=== PATIENT | female | born 1960 | race African-American/Black ===

== ENCOUNTER 2019-03-18 09:46 | Day surgery (SDC) | payer MEDICARE, MEDICAID ==
[2019-03-17 10:18] VITALS: BMI 44.2
[2019-03-18] MEDS ORDERED: CEFAZOLIN 1 GM VIAL ONE (10:09)
[2019-03-18] MEDS ORDERED: Sodium Chloride 0.9% 100 ML ONE (10:10)
[2019-03-18] MEDS ORDERED: PROPOFOL 200 MG/20 ML VIAL ONE (10:39)
[2019-03-18] MEDS ORDERED: PHENYLEPHRINE-NS 100 MCG/ML 10 ML SYRINGE ONE (10:39)
[2019-03-18] MEDS ORDERED: Bupivacaine PF 0.5% 30 ML VIAL ONE (11:58)
[2019-03-18] MEDS ORDERED: Fentanyl 100 MCG/2 ML VIAL ONE (12:01)
[2019-03-18] MEDS ORDERED: Midazolam HCl 2 mg/2 ml Vial ONE (12:01)
[2019-03-18] MEDS ORDERED: Propofol 1,000 MG/100 ML VIAL IV ONE ×2 (12:01→12:02)
[2019-03-18] MEDS ORDERED: levETIRAcetam 500 MG/100 ML PREMIX BAG ONE (12:01)
[2019-03-18] MEDS ORDERED: Ketamine 50 MG/ML (10ML VIAL) ONE (12:02)
[2019-03-18] MEDS ORDERED: EPINEPHrine 1 MG/ML AMP ONE (12:32)
[2019-03-18] MEDS ORDERED: PROPOFOL 20 ML ONE (13:41)
[2019-03-18] MEDS ORDERED: HYDROcodone/Acetaminophen 5/325 mg Tablet ONE (15:16)
--- NOTE | 2019-03-18 19:07 | RAD ---
LUMBAR SPINE: Two fluoroscopic views. 03/18/19 INDICATIONS: Fluoroscopic imaging during insertion of dorsal column stimulator. FINDINGS/IMPRESSION: An AP and lateral view of lumbar spine obtained. Leads overlie what appear to represent L3, L4 and L5 vertebrae. POS: OFF
--- NOTE | 2019-03-18 20:37 | OP ---
DATE OF PROCEDURE: 03/18/2019 PREOPERATIVE DIAGNOSES: 1. Chronic pain syndrome. 2. Causalgia of the left lower extremity, G57.72. POSTOPERATIVE DIAGNOSES: 1. Chronic pain syndrome. 2. Causalgia of the left lower extremity, G57.72. PROCEDURES PERFORMED: 1. Spinal column stimulator battery implant. 2. Spinal column stimulator lead implant x2. ESTIMATED BLOOD LOSS: 5 mL. DESCRIPTION OF PROCEDURE: The patient was taken to the procedure room, placed prone on the procedure room table. A time-out was performed. The back was prepped with DuraPrep. Sterile drapes were applied. Using fluoroscopy, we located the L3 and L4 foramen on the left side. We anesthetized the skin in order to insert a 14-gauge supplied Touhy needle in a paramedian technique to access the epidural space midline. This was done with mild resistance to air. The lead and sheath were then placed through the needle and advanced in the epidural space out of the foramen indicated above. The sheath was removed taking care to leave the lead in place. The double loop was performed for an anchor. The needle and sheath were removed once AP and lateral images showed satisfactory placement. This same technique was applied for the 2 levels. The simulation was performed and the patient felt paresthesia in all areas of pain. A pocket was formed by anesthetizing the skin in the right buttock. Scalpel was used to make an incision and this was blunt dissected down the Catracho's fascia. We created a pocket approximately 2 inches deep from the skin. The tunneling device was used to make a tunnel between the lead sites and the battery site. These were connected to the battery and torque wrench was used to fixate them to the battery. These were all tested for impedance and these showed good impedances. Battery was inserted through the pocket. The fascial layers were closed using simple interrupted suture of 2-0 Vicryl, 3-0 Monocryl. Repeat was used for subcuticular stitch to the battery site and Dermabond was placed over all incisions on the left completely dry. Sterile 4x4s were placed over the incisions with Medipore tape. The patient was then taken to the postop unit under stable condition. Job ID: [id number]
== END 2019-03-18 16:07 | disposition home or self-care (01) ==
LOC: SDC 09:46
PROVIDERS: ATTEND Specialist
PROC: 0JH70DZ Insertion of Multiple Array Stimulator Generator into Back Subcutaneous Tissue and Fascia, Open Approach (ICD-10-PCS; principal; 2019-03-18)
PROC: 00HU3MZ Insertion of Neurostimulator Lead into Spinal Canal, Percutaneous Approach (ICD-10-PCS; 2019-03-18)
DX: G89.4 Chronic pain syndrome (principal); G57.72 Causalgia of left lower limb
CPT/HCPCS: 72100; 76000; J0171; J0690; J1953; J2250; J2704; J3010; J3490; S0020

== ENCOUNTER 2020-01-12 08:21 | Outpatient (CLI) | payer MEDICARE, MEDICAID, OTHER ==
[2020-01-13 12:03] LABS: SARS-CoV-2 MS2 Positive; SARS-CoV-2 N Gene Negative; SARS-CoV-2 S Gene Negative; SARS-CoV-2 by NAA Not Detected (NotDetected); SARS-CoV-2 orf1ab Negative
== END 2020-01-12 08:22 | disposition home or self-care (01) ==
LOC: LABBT 08:21
PROVIDERS: ATTEND Specialist
DX: Z20.828 Contact with and (suspected) exposure to other viral communicable diseases (principal)
CPT/HCPCS: 87635; U0003

== ENCOUNTER 2020-01-15 10:36 | Day surgery (SDC) | payer MEDICARE, MEDICAID ==
[2020-01-14 12:52] VITALS: BMI 44.6
[2020-01-15] MEDS ORDERED: CEFAZOLIN 1 GM VIAL ONE (11:11)
[2020-01-15] MEDS ORDERED: Sodium Chloride 0.9% 100 ML ONE (11:11)
[2020-01-15] MEDS ORDERED: Fentanyl 250 MCG/5 ML VIAL ONE (12:02)
[2020-01-15] MEDS ORDERED: Propofol 1,000 MG/100 ML VIAL IV ONE ×2 (12:02→15:06)
[2020-01-15] MEDS ORDERED: Midazolam HCl 2 mg/2 ml Vial ONE (12:02)
[2020-01-15] MEDS ORDERED: Bupivacaine HCl 0.5%/Epinephrine 1:200,000/PF 30 ml Vial ONE (12:28)
[2020-01-15] MEDS ORDERED: Ketamine 50 MG/ML (10ML VIAL) ONE (12:31)
[2020-01-15] MEDS ORDERED: Lidocaine 1% PF 5 ML VIAL ONE (12:37)
[2020-01-15] MEDS ORDERED: PROPOFOL 200 MG/20 ML VIAL ONE (12:37)
[2020-01-15] MEDS ORDERED: Glycopyrrolate 0.2 MG/ML 5 ML SYRINGE ONE (12:37)
[2020-01-15] MEDS ORDERED: Dexamethasone 20 MG/5 ML VIAL ONE (12:37)
[2020-01-15] MEDS ORDERED: PHENYLEPHRINE-NS 100 MCG/ML 10 ML SYRINGE ONE (12:37)
[2020-01-15] MEDS ORDERED: Ondansetron PF 4 MG/2 ML Vial ONE (12:37)
[2020-01-15] MEDS ORDERED: Lidocaine 1% (PF) 30 ML VIAL ONE (14:40)
[2020-01-15] MEDS ORDERED: methylPREDNISolone Acetate 40 mg/ml Vial ONE (14:40)
--- NOTE | 2020-01-15 16:14 | RAD ---
Radiograph thoracic spine 1 view: 01/15/2020 HISTORY: 59-year-old female with back pain. Revision of dorsal column stimulator. FINDINGS: Despite the entry as thoracic spine, these are actually a total of 4 small [id number] fluoroscopic spot images of the lumbar spine, consisting of 3 lateral views and one frontal view. Electrical lead from posterior soft tissues ascending to L3 spinal canal on one side. Caudal to that, catheter from which wire or a smaller catheter ascends to upper L4 level in the poste rior aspect of spinal canal on lateral view. On frontal view, the distal tip of the larger catheter is at midline at L4-5, with absence of the other smaller catheter within it. IMPRESSION: Ongoing dorsal column spinal cord stimulator lead placement or revision.
[2020-01-15] MEDS ORDERED: HYDROcodone/Acetaminophen 5/325 mg Tablet ONE (16:42)
--- NOTE | 2020-01-16 15:19 | OP ---
DATE OF PROCEDURE: 01/15/2020 PREOPERATIVE DIAGNOSES: 1. Complex regional pain syndrome of the left lower extremity . 2. Chronic pain syndrome. POSTOPERATIVE DIAGNOSES: 1. Complex regional pain syndrome of the left lower extremity . 2. Chronic pain syndrome. PROCEDURES PERFORMED: 1. Spinal cord stimulator generator revision. 2. Attempted lead revision, which was unsuccessful. SPECIMENS REMOVED: Spinal cord stimulator lead intact. BLOOD LOSS: 5 mL. DESCRIPTION OF PROCEDURE: The patient was taken to the procedure room and placed prone on the procedure room table. A time-out was performed. We prepped the lower back with DuraPrep and sterile drapes were applied. We anesthetized the skin over the generator site with 0.5% Marcaine with epinephrine. An incision was made with a 10 blade scalpel and this was blunt dissected down to the battery pocket. We used strictly blunt dissection with no cautery at this point. Upon opening the battery pocket, the scar tissue had wrapped around one of the leads, which we found out was the L4 lead, and upon stretching the scar, it pulled the L4 lead out of the battery and rendered it inoperable. This was unfortunate. We took the other lead out with the torque wrench without any problems. We then decided to replace the L4 lead as it had been damaged upon removal of the battery. The battery was placed on the sterile field. The L4 lead was removed under continuous fluoroscopy to make sure that it was not being stretched. The lead was removed intact. We then inserted a supplied 14-gauge Tuohy needle in a right paramedian fashion and engaged in the ligament of L4-L5. We used loss of resistance to gain access to the epidural space. The lead was passed through the needle and multiple attempts were attempted to gain access to the left L4 foramina; however, this was unachievable. We attempted to gain access to the epidural space and passed the lead approximately 5 to 6 times without success, given that each time we were touching the nerve roots, I decided to abort the procedure at that point as I was worried about causing damage to the L4 nerve roots. After negative aspiration, I injected 80 mg of Depo-Medrol into the epidural space around the L4 nerve root. The needle was removed as well as the lead. We obviously left the L3 lead intact. We then turned our attention to revise the pocket. We cut out the scar tissue with cautery. We then blunt dissected laterally to make a pocket further lateral in the right lower back almost to the hip. We then inserted the remaining lead into the battery and used a torque wrench to fixate it to the battery. This was interrogated and all electrodes were working. We took the battery into the newly formed pocket and used 2-0 Vicryl to close the newly formed pocket. We then used 2-0 Vicryl in interrupted fashion to close the old pocket to allow it to collapse on itself. We then used 2-0 Vicryl in horizontal mattress stitches to approximate the deep fascial layer. We then used a 2-0 Vicryl in simple interrupted fashion for approximation of the fascial layer, and then, we used a 3-0 Rapide as a subcuticular stitch to approximate the skin. Once we did this, we used Dermabond as an occlusive dressing. Once this was dry, we placed a sterile 4x4 and Medipore tape on this, and the patient was taken to Recovery under stable condition. Programming was performed afterwards and the patient did note paresthesia in her previous pain areas. We are in hopes that this will continue to help despite lacking one lead. Job ID: [id number]
== END 2020-01-15 17:25 | disposition home or self-care (01) ==
LOC: SDC 10:36
PROVIDERS: ATTEND Specialist
PROC: 0JWT0MZ Revision of Stimulator Generator in Trunk Subcutaneous Tissue and Fascia, Open Approach (ICD-10-PCS; principal; 2020-01-15)
DX: G57.72 Causalgia of left lower limb (principal); G89.4 Chronic pain syndrome; E78.5 Hyperlipidemia, unspecified
CPT/HCPCS: 72020; 76000; J0690; J1100; J2001; J2250; J2405; J2704; J2920; J3010; J3370; J3490